=== PATIENT | female | born 1980 | race Caucasian/White ===

== ENCOUNTER 2022-02-10 15:07 | Emergency (ER) | payer SELFPAY ==
[~2022-02-10] VITALS: Ht 170.2 cm; Wt 86.0 kg
[2022-02-10 15:09] VITALS: BP 114/60
== END 2022-02-10 22:14 | disposition left against medical advice (07) ==
LOC: ER 15:07
DX: Z53.21 Procedure and treatment not carried out due to patient leaving prior to being seen by health care provider (principal)
CPT/HCPCS: 93005